=== PATIENT | male | born 1950 ===

== ENCOUNTER 2022-09-09 08:27 | Outpatient (CLI) | payer OTHER | END 2022-09-09 08:44 | disposition home or self-care (01) | LOC: TOM 08:27 | PROVIDERS: ATTEND Surgery | DX: K57.32 Diverticulitis of large intestine without perforation or abscess without bleeding (principal) ==

== ENCOUNTER 2022-10-21 07:59 | Outpatient (CLI) | payer OTHER | END 2022-10-21 08:14 | disposition home or self-care (01) | LOC: TOM 07:59 | PROVIDERS: ATTEND Surgery | DX: K57.32 Diverticulitis of large intestine without perforation or abscess without bleeding (principal) ==